=== PATIENT | male | born 1955 | race Caucasian/White ===

== ENCOUNTER 2025-01-29 08:28 | Emergency (ER) | payer MEDICARE, BC ==
[~2025-01-29] VITALS: Ht 188 cm; Wt 117.9 kg
[2025-01-29] MEDS ORDERED: ACETAMINOPHEN/CODEINE 300-30 MG TABLET ONE ×2 (08:52→08:55)
[2025-01-29] MEDS: ACETAMINOPHEN/CODEINE 300-30 MG TABLET PO ONE ×2 (08:55→08:58)
[2025-01-29] MEDS ORDERED: ACET1TAB23 PO (10:24)
[2025-01-29 10:27] VITALS: BP 145/60; O2SAT 98
[2025-01-31] MEDS ORDERED: VALA100026 PO (09:46)
== END 2025-01-29 10:28 | disposition home or self-care (01) ==
LOC: ER 08:43
DX: S39.012A Strain of muscle, fascia and tendon of lower back, initial encounter (principal); M47.817 Spondylosis without myelopathy or radiculopathy, lumbosacral region; I10 Essential (primary) hypertension; X58.XXXA Exposure to other specified factors, initial encounter; Y93.89 Activity, other specified; Y92.89 Other specified places as the place of occurrence of the external cause; Y99.8 Other external cause status
CPT/HCPCS: 72110; A4606; A4663